=== PATIENT | male | born 1955 | race Caucasian/White ===

== ENCOUNTER 2022-08-10 14:35 | Emergency (ER) | payer OTHER ==
[2022-08-10 15:12] VITALS: RESP 16
--- NOTE | 2022-08-10 16:02 | CT ---
EXAMINATION TYPE: CT facial bones wo con DATE OF EXAM: 08/10/2022 COMPARISON: None HISTORY: Facial trauma CT DLP: 1217.3 mGycm Automated exposure control for dose reduction was used. Contrast: None Technique: Axial images 2 mm thick sections. Reconstructed images in the coronal plane. FINDINGS: Note is made of some septal deviation. Ostiomeatal units are patent. Mandible appears intact. Temporomandibular junctions are normal. Maxillary spine is intact. Maxilla a ppears unremarkable Maxillary sinuses are clear. Sphenoid sinuses are clear. Ethmoid air cells and frontal sinuses are cl ear. No acute fractures are evident. Some minimal soft tissue swelling over the left cheek region may be present. IMPRESSION: 1. NO ACUTE OSSEOUS ABNORMALITIES FACIAL BONES FOLLOW UP EXAMS CAN BE PERFORMED CLINICALLY INDICAT ED.
--- NOTE | 2022-08-10 16:02 | CT ---
EXAMINATION TYPE: CT brain howard wo con DATE OF EXAM: 08/10/2022 COMPARISON: None HISTORY: Trauma CT DLP: 1217.3 mGycm, Automated exposure control for dose reduction was used. CONTRAST: Patient injected with 0 mL of Isovue 300. CT of the brain is performed utilizing 3 mm thick sections through the posterior fossa and 3 mm thick sections through the remaining calvarium. Study is performed within 24 hours of arrival to the hospital. No abnormal hyperdensity is present to suggest an acute intracranial hemorrhage. No mass lesion is evident. No acute infarcts are evident. Ventricles and sulci are appropriate for the patient age. Paranasal sinuses and mastoid air cells within the [id number] are clear. IMPRESSIONS: 1. No acute intracranial process. Follow-up MRI can be performed as clinically indicated. CT cervical spine. COMPARISON: None CT of the cervical spine is performed in the axial plane at 2 mm thick sections. Reconstructed image s in the coronal, and sagittal plane are reviewed on the computer. No acute fractures are evident. Vertebral body alignment is normal. Disc space narrowing is present C5-6 C6-7. Vacuum disc phenomena present at these levels. Vertebral body heights are preserved. There may be some mild sclerosis within the C5 and C6 vertebral levels and along the superior endplate of C7. Anterior vertebral body spurring is present C5-C7. No spinal canal stenosis is evident. No neural foraminal stenosis is evident. Some mild facet hypertrophy with degenerative changes are pr esent. IMPRESSIONS: 1. No acute posttraumatic changes cervical spine. 2. Degenerative disc changes mid to lower cervical spine
[2022-08-10] MEDS ORDERED: DIPH,PERTUS(ACELL)TETVAC-LF 0.5 ML VIAL IM ONE (19:38)
[2022-08-10] MEDS ORDERED: PROPARACAINE 0.5% OPHTH DROPS 15 ML BTL LEFT EYE STA (19:38)
[2022-08-10] MEDS ORDERED: FLUORESCEIN STRIPS 1 MG STRIP LEFT EYE ONE (19:39)
[2022-08-10] MEDS ORDERED: ERYTHROMYCIN 5 MG/GM OPHTH OINT 3.5 GM TUBE LEFT EYE STA (19:39)
[2022-08-10] MEDS ORDERED: LIDOCAINE 1% INJ 10MG/ML (20 ML MDV) SQ STA (19:40)
--- NOTE | 2022-08-10 19:47 | ED ---
Head Injury HPI - General Chief complaint: Head Injury Stated complaint: left eye injury Time Seen by Provider: 08/10/22 19:30 Source: patient, RN notes reviewed Mode of arrival: ambulatory Limitations: no limitations - History of Present Illness Initial comments: This is a pleasant 66-year-old male who was struck in the face with a 4 x 4. Patient was jacking up his house and a 4 x 4 shot out while he was performing this and struck him in the face, he has a laceration to his nose and a laceration just below his left eye. Patient denying any visual complaints. Patient states he was stunned initially and saw stars. Patient was not knocked unconscious. He is not on blood thinners. Patient had a computed tomography scan ordered by the triage nurse prior to me seeing the patient. At this point the injury occurred about 6 hours as the patient has been waiting in our waiting room for 5 hours. No other injuries. Last tetanus unknown. No gait disturbance. No visual disturbance. No hearing disturbance. No vertigo. Patient denying any significant headache. No oral or dental injury. No difficulty swallowing. No neck pain. No headache, no fever or chills, no changes in vision or hearing, no sore throat or difficulty with speech, no neck pain, no chest pain or shortness of breath, no abdominal pain, no nausea or vomiting, no changes in urination or bowel movements, no numbness or tingling, no extremity pain, no skin rashes or lesions. Past medical, surgical, social, and family history reviewed. - Related Data Previous Rx's Medication Instructions Recorded Artificial Tears-Hypromellose 1 drops LEFT EYE TID #10 ml 08/10/22 [Artificial Tear Drops] Allergies/Adverse reactions: Allergies Allergy/AdvReac Type Severity Reaction Status Date / Time No Known Allergies Allergy Verified 08/10/22 15:12 Review of Systems ROS Statement: Those systems with pertinent positive or pertinent negative responses have been documented in the HPI. ROS Other: All systems not noted in ROS Statement are negative. Past Medical History Past Medical History: No Reported History History of Any Multi-Drug Resistant Organisms: None Reported Past Surgical History: No Surgical Hx Reported Past Psychological History: No Psychological Hx Reported Smoking Status: Current every day smoker Past Alcohol Use History: None Reported Past Drug Use History: Marijuana General Exam - General Exam Comments Initial Comments: Patient in no significant distress at the time I'm seeing him. Patient has obvious injuries to his facial area. Appears to be superficial laceration to the nose and superficial laceration below the left eye with some conjunctival hemorrhage the left eye. Cranial nerves II through XII are intact. Patient is alert and oriented 4. Limitations: no limitations General appearance: alert, in no apparent distress Head exam: Present: other (Superficial laceration of the bridge of nose. No septal hematoma. No bony point tenderness of the facial bones. Extraocular movements are intact) Eye exam: Present: PERRL, EOMI. Absent: normal appearance (Patient has a small laceration to the lower eyelid that crosses over onto the palpebral conjunctiva. This likely involves the tarsal plate as well.), scleral icterus, conjunctival injection, periorbital swelling, periorbital tenderness Expanded Eyelids: Normal Inspection: Right, Laceration: Left (Involving the lower eyelid, tarsal plate, onto the lower palpebral conjunctiva), Erythema: Left (Some conjunctival hemorrhage involving the lower scleral conjunctiva, approximately 30%) Pupils: Regular, Round: Bilateral, Reactive: Bilateral Sclera/Conjunctival: Hemorrhage: Left (Left, lower, 30% subconjunctival hemorrhage.) Anterior chamber: Normal Inspection: Bilateral ENT exam: Present: normal exam, normal oropharynx, mucous membranes moist, TM's normal bilaterally, normal external ear exam, other (No septal hematoma. Superficial laceration over the nasal bridge. Mild tenderness. Minimal ecchymosis to the left infraorbital area. No significant orbital tenderness.). Absent: mucous membranes dry Neck exam: Present: normal inspection, full ROM. Absent: tenderness, meningismus, lymphadenopathy Respiratory exam: Present: normal lung sounds bilaterally. Absent: respiratory distress, wheezes, rales, rhonchi, stridor, chest wall tenderness, accessory muscle use Cardiovascular Exam: Present: regular rate, normal rhythm, normal heart sounds. Absent: systolic murmur, diastolic murmur, rubs, gallop, clicks GI/Abdominal exam: Present: soft, normal bowel sounds. Absent: distended, tenderness, guarding, rebound, rigid Extremities exam: Present: normal inspection, full ROM, normal capillary refill. Absent: tenderness, pedal edema, joint swelling, calf tenderness Back exam: Present: normal inspection Neurological exam: Present: alert, oriented X3, CN II-XII intact Psychiatric exam: Present: normal affect, normal mood Skin exam: Present: warm, dry, normal color. Absent: rash Course Vital Signs 08/10/22 08/10/22 15:09 20:30 Temperature 98.5 F Pulse Rate 54 L 55 L Respiratory 16 16 Rate Blood Pressure 147/87 123/60 O2 Sat by Pulse 94 L 95 Oximetry - Reevaluation(s) Reevaluation #1: 08/10/22 22:01 Medical record is reviewed Symptoms are improved here in the emergency department Patient is informed of results and questions answered Patient in no distress Patient alert and oriented 4, cranial nerves II through XII intact. Procedures - Laceration Laceration #1 Consent Obtained: verbal consent Indication: laceration Site: face Size (cm): 2 Description: linear Depth: simple, single layer Pre-repair: wound explored, irrigated extensively Type of Sutures: other (Tissue adhesive) Patient Tolerated Procedure: well, no complications Medical Decision Making - Medical Decision Making I'm going to touch base with on-call ophthalmology due to the laceration of the lower eyelid likely involving the tarsal plate. Left lower eyelid laceration was repaired by the on-call truss maker, Dr. Mercado. Suture removal per ophthalmology instructions. Patient will need to follow-up within the next [address] Flood per ophthalmology instructions. Patient was given head injury instructions. Discussed signs and symptoms of concussion. Discussed restrictions. Discussed care of tissue adhesive. Discussed wound care and signs and symptoms of infection. Patient was told to return to the ER for any signs or symptoms worsen. Told to return immediately if any other problems arise. All questions answered. Treatment plan discussed. Patient in agreement Every effort has been made to ensure accuracy of this dictation. However, due to the limitations of electronic medical records and dictation devices, errors in charting still occur. Supervising physician is Dr. Topete - Radiology Data Radiology results: report reviewed (No evidence of acute pathology on CT of the brain and cervical spine. No fracture seen on CT of the facial bones.), image reviewed Disposition Clinical Impression: Closed head injury, Concussion without loss of consciousness, Eyelid laceration, left, Subconjunctival hemorrhage of left eye, Nasal laceration, Facial contusion Narrative: Left lower eyelid laceration with tarsal plate involvement Disposition: HOME SELF-CARE Condition: Good Instructions (If sedation given, give patient instructions): Care For Your Stitches (ED), Concussion (ED), Skin Adhesive Care (ED) Additional Instructions: Suture care as directed by the truss maker. The eye antibiotic ointment, 1 cm 4 times daily until recheck by ophthalmology. Review the head injury instructions. Make sure you with somebody at all times the next 24 hours. If anything for pain, take [id number] acetaminophen as directed on the bottle. Follow-up with your regular physician as directed. Call at 8 AM tomorrow morning to schedule the appointment with the truss maker. Return to the ER immediately if any symptoms worsen, new symptoms arise, or any other problems develop. Prescriptions: Artificial Tears-Hypromellose [Artificial Tear Drops] 1 drops LEFT EYE TID #10 ml Is patient prescribed a controlled substance at d/c from ED?: No Referrals: Jennifer Flood MD [STAFF PHYSICIAN] - 08/10/22 8:00 am Time of Disposition: 21:59
[2022-08-10] MEDS ORDERED: LIDOCAINE 1%-EPI 1:100,000 20 ML VIAL SQ STA (20:03)
[2022-08-10] MEDS ORDERED: TOPICAL SKIN ADHESIVE 1 EACH AMP TOPICAL ONE (21:17)
[2022-08-10 22:40] VITALS: BP 117/86; PULSE 56; TEMP 97.6
--- NOTE | 2022-08-10 23:20 | P.CON ---
Consult Note - . Consult date: 08/10/22 Assessment/Plan:: This is a 66 y/o male who while lifting a structure, was hit on the left side of his face with a 4x4" board that slipped from its support. He denies any LOC, but presented to the ER with a left eyelid laceration and an episode of syncope in the waiting room. Studies performed did not reveal any ariel defects and vision seemed normal after he was stabilized. I was asked to repair the left eyelid and an ophthalmic examination. he states that his last eye examination was most likely in school and currently he only uses reading glasses as he feels his distance is adequate. General: he is alert and oriented with mild to moderate pain along the left orbital and cheek areas. Ext: right unremarkable, left with bruising from the lateral brow through the upper eyelid, into the lower eyelid and the bruising extends to the nose. The la teral 1 cm is a full thickness irregular laceration which is not actively bleeding at the time of examination. Sensation normal. Va: w/o correction is 20/30 OD and 20/20-3 OS at distance EOM: full normal D&V Pupils: w/o APD CF: full OU Cornea: clear OU, no noted abrasions Conj: normal right, left with scattered subconjunctival bruising especially laterally and inferiorly AC: D&Q Iris: no pathology Lens: mild age-consistent cataract changes OU, otherwise normal (not dilated) Vit: clear OU ONH: S/F/P OU C:D 0.25 Mac: normal softened FLR without pathology Vasc: normal 0.67 Periphery: grossly normal A: laceration of left lower eyelid from 4x4" board P: recommend repair in ER and follow up examination of eyes to rule out any additional vitreoretinal injuries, as he was not acutely dilated. Recommend aggressive lubrication left eye. Topical eye ointment (erythromycin) during the acute phase of healing and follow up in office in approximately a week to remove sutures.
--- NOTE | 2022-08-10 23:32 | P.PCN ---
Date of Procedure: 08/10/22 Preoperative Diagnosis: Left lower eyelid laceration Postoperative Diagnosis: same Procedure(s) Performed: Full thickness eyelid laceration repair including the tarsus margin and eyelash line Implants: none Anesthesia: local Surgeon: Pee Mercado Estimated Blood Loss (ml): 10 Pathology: none sent Condition: stable Disposition: other (to home after ER final assessment) Indications for Procedure: Traumatic injury to left lower eyelid Operative Findings: Laceration approximately 2cm length x 1 cm wide. No missing tissue, and alignment generally good despite a somewhat ragged tear line. The eyelid margin was reapproximated with good alignment of the line of Riolan and secured with 8- 0 Vicryl. The tarsus inferior to the margin corresponding edges were identified and reapproximated using 2 additional 8-0 Vicryl interrupted sutures. Once the tarsus was repaired the eyelash line was aligned and secured with a single 8-0 Vicryl suture. The skin laceration was repaired with 6-0 nylon with interrupted sutures. The eye was dressed with topical erythromycin ointment. He tolerated procedure well and discharged from ER in good condition.
== END 2022-08-10 22:40 | disposition home or self-care (01) ==
LOC: EC 14:35
DX: S06.0X0A Concussion without loss of consciousness, initial encounter (principal); S01.21XA Laceration without foreign body of nose, initial encounter; S01.112A Laceration without foreign body of left eyelid and periocular area, initial encounter; H11.32 Conjunctival hemorrhage, left eye; Z23 Encounter for immunization; F17.200 Nicotine dependence, unspecified, uncomplicated; W23.1XXA Caught, crushed, jammed, or pinched between stationary objects, initial encounter
CPT/HCPCS: 72125; 70486; 70450; 90715; 12011; 90471; 99284; J2001

== ENCOUNTER 2023-08-28 12:24 | Inpatient (IN) | payer OTHER ==
--- NOTE | 2023-08-28 14:07 | ED ---
General Adult HPI - General Chief complaint: Weakness Stated complaint: JANENE Time Seen by Provider: 08/28/23 13:48 Source: patient Mode of arrival: ambulatory Limitations: no limitations - History of Present Illness Initial comments: Dictation was produced using [employer] dictation software. please excuse any grammatical, word or spelling errors. Chief Complaint: 68-year-old male presents emergency department for weakness and shortness of breath History of Present Illness: 68-year-old male has past nuchal history tobacco use. Patient has been weak. Denies any significant comorbidities. Significant other at the bedside and assists provides history present illness. Apparently 1 week he was cleaning a house that was extensively soiled with feces and urine. Since then he has been feeling weak and fatigued. Patient states he short of breath. Denies any chest pain. Denies any fever or constitutional symptoms. Significant other reports that patient has been urinating himself and have sent. Acting right. The ROS documented in this emergency department record has been reviewed and confirmed by me. Those systems with pertinent positive or negative responses have been documented in the HPI. All other systems are other negative and/or noncontributory. - Related Data Home Medications Medication Instructions Recorded Confirmed No Known Home Medications 08/28/23 08/28/23 Allergies Allergy/AdvReac Type Severity Reaction Status Date / Time No Known Allergies Allergy Verified 08/28/23 15:46 Review of Systems ROS Statement: Those systems with pertinent positive or pertinent negative responses have been documented in the HPI. ROS Other: All systems not noted in ROS Statement are negative. Past Medical History Past Medical History: No Reported History History of Any Multi-Drug Resistant Organisms: None Reported Past Surgical History: No Surgical Hx Reported Past Psychological History: No Psychological Hx Reported Smoking Status: Current every day smoker Past Alcohol Use History: None Reported Past Drug Use History: Marijuana General Exam - General Exam Comments Initial Comments: PHYSICAL EXAM: General Impression: Alert and oriented x3, not in acute distress HEENT: Normocephalic atraumatic, extra-ocular movements intact, pupils equal and reactive to light bilaterally, mucous membranes moist. Cardiovascular: Heart regular rate and rhythm Chest: Able to complete full sentences, no retractions, mild end expiratory wheezing Abdomen: abdomen soft, non-tender, non-distended, no organomegaly Musculoskeletal: Pulses present and equal in all extremities, no peripheral edema Motor: no focal deficits noted Neurological: CN II-XII grossly intact, no focal motor or sensory deficits noted Skin: Intact with no visualized rashes Psych: Normal affect and mood Limitations: no limitations Course Vital Signs 08/28/23 08/28/23 08/28/23 12:46 13:55 14:31 Temperature 99.3 F Pulse Rate 84 84 Respiratory 16 18 Rate Blood Pressure 135/70 O2 Sat by Pulse 93 L Oximetry 08/28/23 14:39 Temperature Pulse Rate 88 Respiratory Rate Blood Pressure O2 Sat by Pulse Oximetry EKG Findings - EKG Comments: EKG Findings:: My EKG interpretation: Ventricular rate 80, sinus rhythm,. Interval 131, QRS 84, QTC 361. No RI prolongation, no QTC prolongation, no ST or T-wave changes noted. Overall, this EKG is unremarkable Medical Decision Making - Medical Decision Making Was pt. sent in by a medical professional or institution (, [facility], [facility], urgent care, hospital, or residential...) When possible be specific @ -No Did you speak to anyone other than the patient for history (EMS, parent, family, police, friend...)? What history was obtained from this source @ -Some history obtained from significant other at the bedside states that he is behaving rather unusually Did you review nursing and triage notes (agree or disagree)? Why? @ -I reviewed and agree with nursing and triage notes Were old charts reviewed (outside hosp., previous admission, EMS record, old EKG, old radiological studies, urgent care reports/EKG's, residential records)? Report findings @ -No old charts were reviewed Differential Diagnosis (chest pain, altered mental status, abdominal pain women, abdominal pain men, vaginal bleeding, musculoskeletal, weakness, fever, dyspnea, syncope, headache, dizziness, GI bleed, back pain, seizure, CVA, palpatations, mental health)? @ -Differential Dyspnea: Coronary syndrome, arrhythmia, tamponade, asthma, COPD, pulmonary embolism, pneu monia, pneumothorax, pulmonary effusion, anaphylaxis, diabetic ketoacidosis, flailed chest, pulmonary contusion, diaphragmatic rupture, anemia, neuromuscular, this is not meant to be an all-inclusive list. EKG interpreted by me (3pts min.). @ -As above X-rays interpreted by me (1pt min.). @ -Multilobar pneumonia seen on chest x-ray CT interpreted by me (1pt min.). @ -None done U/S interpreted by me (1pt. min.). @ -None done What testing was considered but not performed or refused? (CT, X-rays, U/S, labs)? Why? @ -None What meds were considered but not given or refused? Why? @ -None Did you discuss the management of the patient with other professionals (professionals i.e. DrNaomi, PA, [facility], lab, RT, psych nurse, social services assistant, store operations specialist, teacher, prison officer, case picker)? Give summary @ -Discussed with Dr. Fuentes for admission Was smoking cessation discussed for >3mins.? @ -No Was critical care preformed (if so, how long)? @ -No Were there social determinants of health that impacted care today? How? (Homelessness, low income, unemployed, alcoholism, drug addiction, transportation, low edu. Level, literacy, decrease access to med. care, [facility], rehab)? @ -No Was there de-escalation of care discussed even if they declined (Discuss DNR or withdrawal of care, Hospice)? DNR status @ -No What co-morbidities impacted this encounter? (DM, HTN, Smoking, COPD, CAD, Cancer, CVA, ARF, Chemo, Hep., AIDS, mental health diagnosis, sleep apnea, morbid obesity)? @ -None Was patient admitted / discharged? Hospital course, mention meds given and route, prescriptions, significant lab abnormalities, going to OR and other p ertinent info. @ -68-year-old male presents emergency Department with chief complaint of shortness of breath and altered mental status. Vital signs upon arrival shows findings within acceptable limits. Did have a low-grade temperature. Laboratory evaluation shows leukocytosis of 20.4. Coag panel is normal. Labs unremarkable. No lactic acidosis. Computed tomography scan of brain is negative. Chest x-ray shows multilobar pneumonia. Patient treated with antibiotics. Reevaluated at 3:50 PM showing male with no apparent distress. Significant other is worried about his behavior and his weakness. Considering these factors patient be admitted for knee acquired pneumonia. He is on IV antibiotics. Will be admitted with consultation pulmonology. Undiagnosed new problem with uncertain prognosis? @ -No Drug Therapy requiring intensive monitoring for toxicity (Heparin, Nitro, Insulin, Cardizem)? @ -No Were any procedures done? @ -No Diagnosis/symptom? Acute, or Chronic, or Acute on Chronic? Uncomplicated (without systemic symptoms) or Complicated (systemic symptoms)? @ -multilobar pneumonia Side effects of treatment? @ -No Exacerbation, Progression, or Severe Exacerbation? @ -No Poses a threat to life or bodily function? How? (Chest pain, [place], [place], pneumonia, PE, COPD, DKA, ARF, appy, cholecystitis, CVA, Diverticulitis, Homicidal, Suicidal, threat to staff... and all critical care pts) @ -yes - Lab Data Result diagrams: 08/28/23 14:45 08/28/23 14:45 Lab Results 08/28/23 08/28/23 08/28/23 Range/Units 14:45 14:45 14:45 WBC 20.4 H (3.8-10.6) k/uL RBC 5.04 (4.30-5.90) m/uL Hgb 15.4 (13.0-17.5) gm/dL Hct 44.1 (39.0-53.0) % MCV 87.5 (80.0-100.0) fL MCH 30.5 (25.0-35.0) pg MCHC 34.9 (31.0-37.0) g/dL RDW 13.5 (11.5-15.5) % Plt Count 196 (150-450) k/uL MPV 10.4 Neutrophils % 84 % Lymphocytes % 7 % Monocytes % 7 % Eosinophils % 1 % Basophils % 0 % Neutrophils # 17.1 H (1.3-7.7) k/uL Lymphocytes # 1.4 (1.0-4.8) k/uL Monocytes # 1.4 H (0-1.0) k/uL Eosinophils # 0.1 (0-0.7) k/uL Basophils # 0.1 (0-0.2) k/uL PT 10.4 (10.0-12.5) sec INR 0.9 (<1.2) APTT 30.5 H (22.0-30.0) sec Sodium 133 L (137-145) mmol/L Potassium 3.8 (3.5-5.1) mmol/L Chloride 99 (98-107) mmol/L Carbon Dioxide 23 (22-30) mmol/L Anion Gap 11 mmol/L BUN 22 H (9-20) mg/dL Creatinine 1.02 (0.66-1.25) mg/dL Est GFR (CKD-EPI)AfAm 88 (>60 ml/min/1.73 sqM) Est GFR (CKD-EPI)NonAf 76 (>60 ml/min/1.73 sqM) Glucose 118 H (74-99) mg/dL Plasma Lactic Acid Nabil (0.7-2.0) mmol/L Calcium 9.0 (8.4-10.2) mg/dL Magnesium 2.3 (1.6-2.3) mg/dL Total Bilirubin 0.8 (0.2-1.3) mg/dL AST 96 H (17-59) U/L ALT 51 H (4-49) U/L Alkaline Phosphatase 118 (38-126) U/L Total Protein 6.6 (6.3-8.2) g/dL Albumin 3.6 (3.5-5.0) g/dL 08/28/23 Range/Units 14:45 WBC (3.8-10.6) k/uL RBC (4.30-5.90) m/uL Hgb (13.0-17.5) gm/dL Hct (39.0-53.0) % MCV (80.0-100.0) fL MCH (25.0-35.0) pg MCHC (31.0-37.0) g/dL RDW (11.5-15.5) % Plt Count (150-450) k/uL MPV Neutrophils % % Lymphocytes % % Monocytes % % Eosinophils % % Basophils % % Neutrophils # (1.3-7.7) k/uL Lymphocytes # (1.0-4.8) k/uL Monocytes # (0-1.0) k/uL Eosinophils # (0-0.7) k/uL Basophils # (0-0.2) k/uL PT (10.0-12.5) sec INR (<1.2) APTT (22.0-30.0) sec Sodium (137-145) mmol/L Potassium (3.5-5.1) mmol/L Chloride (98-107) mmol/L Carbon Dioxide (22-30) mmol/L Anion Gap mmol/L BUN (9-20) mg/dL Creatinine (0.66-1.25) mg/dL Est GFR (CKD-EPI)AfAm (>60 ml/min/1.73 sqM) Est GFR (CKD-EPI)NonAf (>60 ml/min/1.73 sqM) Glucose (74-99) mg/dL Plasma Lactic Acid Nabil 1.0 (0.7-2.0) mmol/L Calcium (8.4-10.2) mg/dL Magnesium (1.6-2.3) mg/dL Total Bilirubin (0.2-1.3) mg/dL AST (17-59) U/L ALT (4-49) U/L Alkaline Phosphatase (38-126) U/L Total Protein (6.3-8.2) g/dL Albumin (3.5-5.0) g/dL Disposition Clinical Impression: Pneumonia Disposition: ADMITTED IP TO THIS [facility] Condition: Fair Referrals: None,Stated [Primary Care Provider] - 1-2 days Decision Time: 15:48
[2023-08-28] MEDS ORDERED: IPRATROPIUM-ALBUTEROL 3 ML NEB INHALATION STA (14:29)
--- NOTE | 2023-08-28 15:01 | CT ---
EXAMINATION TYPE: CT brain wo con DATE OF EXAM: 08/28/2023 COMPARISON: 08/10/2022 INDICATION: ams DLP: 1100.4 mGycm, Automated exposure control for dose reduction was used. CONTRAST: None CT of the brain is performed utilizing 3 mm thick sections through the posterior fossa and 3 mm thick sections through the remaining calvarium. Study is performed within 24 hours of arrival to the [facility]. No abnormal hyperdensity is present to suggest an acute intracranial hemorrhage. No mass lesion is evident. No acute infarcts are evident. Ventricles and sulci are appropriate for the patient age. Paranasal sinuses and mastoid air cells within the [id number] are clear. IMPRESSION: 1. No acute intracranial process. Follow-up MRI can be performed as clinically indicated.
--- NOTE | 2023-08-28 15:07 | XR ---
EXAMINATION TYPE: XR chest 1V portable DATE OF EXAM: 08/28/2023 3:03 PM COMPARISON: None TECHNIQUE: XR chest 1V portable Portable AP radiograph of the chest. CLINICAL INDICATION:Male, 68 years old with history of ams; FINDINGS: Lungs/Pleura: Patchy wedge-shaped airspace opacity within the left upper midlung with additional prashant on within the right midlung. No pleural effusion or pneumothorax. Pulmonary vascularity: Unremarkable. Heart/mediastinum: Cardiomediastinal silhouette is unremarkable. Musculoskeletal: No acute osseous pathology. IMPRESSION: Patchy opacities within the left upper and mid lung with additional region within the right midlung. This is concerning for pneumonia. Continued follow-up is recommended.
[2023-08-28] MEDS ORDERED: AZITHROMYCIN 500 MG in SODIUM CHLORIDE 0.9% 250 ML IVPB STA (15:08)
[2023-08-28] MEDS ORDERED: SODIUM CHLORIDE 0.9% 1,000 ML IV STA (15:08)
[2023-08-28] MEDS ORDERED: cefTRIAXone IN SWFI 1,000 MG/10 ML SYRINGE IVP STA (15:08)
[2023-08-28 15:18] LABS: INR 0.9 (<1.2); Partial Thromboplastin Time 30.5 sec (22.0-30.0); Prothrombin Time 10.4 sec (10.0-12.5)
[2023-08-28 15:28] LABS: ALT 51 U/L (4-49); AST 96 U/L (17-59); African American GFR (CKD) 88 (>60 ml/min/1.73 sqM); Albumin 3.6 g/dL (3.5-5.0); Alkaline Phosphatase 118 U/L (38-126); Anion Gap 11 mmol/L; Blood Urea Nitrogen 22 mg/dL (9-20); Carbon Dioxide 23 mmol/L (22-30); Chloride 99 mmol/L (98-107); Glucose 118 mg/dL (74-99); Magnesium 2.3 mg/dL (1.6-2.3); Non-African American GFR(CKD) 76 (>60 ml/min/1.73 sqM); Potassium 3.8 mmol/L (3.5-5.1); Sodium 133 mmol/L (137-145); Total Bilirubin 0.8 mg/dL (0.2-1.3); Total Protein 6.6 g/dL (6.3-8.2)
[2023-08-28 15:35] LABS: Basophils # (A) 0.1 k/uL (0-0.2); Basophils % (A) 0 %; Eosinophils # (A) 0.1 k/uL (0-0.7); Eosinophils % (A) 1 %; HCT 44.1 % (39.0-53.0); HGB 15.4 gm/dL (13.0-17.5); Lymphocytes # (A) 1.4 k/uL (1.0-4.8); Lymphocytes % (A) 7 %; MCH 30.5 pg (25.0-35.0); MCHC 34.9 g/dL (31.0-37.0); MCV 87.5 fL (80.0-100.0); Mean Platelet Volume 10.4; Monocytes # (A) 1.4 k/uL (0-1.0); Monocytes % (A) 7 %; Neutrophils # (A) 17.1 k/uL (1.3-7.7); Neutrophils % (A) 84 %; Platelet Count 196 k/uL (150-450); RBC 5.04 m/uL (4.30-5.90); RDW 13.5 % (11.5-15.5); WBC 20.4 k/uL (3.8-10.6)
[2023-08-28] MEDS ORDERED: PNEUMONIA PROTOCOL UTILIZED 1 EACH MISC PO PRN (15:37)
[2023-08-28] MEDS ORDERED: IPRATROPIUM-ALBUTEROL 3 ML NEB INHALATION PRN (15:37)
[2023-08-28] MEDS ORDERED: ACETAMINOPHEN TAB 500 MG TAB PO PRN (16:41)
[2023-08-28] MEDS ORDERED: HYDROmorphone 1 MG/ML 1 ML SYRINGE IVP PRN (16:42)
[2023-08-28] MEDS: SODIUM CHLORIDE 0.9% 1,000 ML IV SCH (17:06)
[2023-08-28] MEDS: methylPREDNISolone SOD SUCCI 40 MG/ML 1 ML VIAL IV SCH ×2 (19:43→23:29)
--- NOTE | 2023-08-28 20:04 | CT ---
EXAMINATION TYPE: CT chest wo con DATE OF EXAM: 08/28/2023 COMPARISON: Radiograph same day HISTORY: 68-year-old male community-acquired pneumonia TECHNIQUE: Contiguous axial scanning of the chest without IV contrast. Coronal/sagittal reconstructio ns performed. CT DLP: 419.9mGycm. Automatic exposure control utilized for a dose reduction. FINDINGS: The heart is normal size without pericardial effusion. Aorta normal caliber with minimal atherosclerotic arch calcification. 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 Some reactive mediastinal lymph nodes are present measuring up to 1.3 cm lower left paratracheal and 1.2 cm lower right paratracheal. Moderate emphysematous changes. Multifocal consolidation is present, greatest in the anterior right m idlung and patchy multifocal areas throughout the left lung. No pleural effusion. Areas of dependent atelectasis is also present. Visualized upper abdomen shows no gross abnormality. Bones: Mild to moderate degenerative disc disease throughout. IMPRESSION: 1. COPD with moderate emphysema. 2. Focal air space disease anterior right midlung and also multifocal throughout the left lung. Corre late for multifocal pneumonia. No pulmonary abscess or cavitary change is identified at this time. Fo llow-up can be performed if there is no improvement with treatment. 3. Suspected reactive mediastinal adenopathy measuring up to 1.3 cm.
--- NOTE | 2023-08-28 23:21 | CT ---
EXAM: CT Angiography Chest With Intravenous Contrast CLINICAL HISTORY: ITS.REASON CT Reason: D-Dimer TECHNIQUE: Axial computed tomographic angiography images of the chest with intravenous contrast. CTDI is 10.2 mGy and DLP is 464.2 mGy-cm. This CT exam was performed using one or more of the following dose reduction techniques: automated exposure control, adjustment of the mA and/or kV according to patient size, and/or use of iterative reconstruction technique. MIP reconstructed images were created and reviewed. COMPARISON: No relevant prior studies available. FINDINGS: Pulmonary arteries: Unremarkable. No acute pulmonary embolism. Aorta: Atherosclerotic changes of the aorta. No thoracic aortic aneurysm. Lungs: Lobar consolidations in the LEFT upper lobe, RIGHT middle lobe, and to a lesser extent LEFT lower lobe, consistent with multifocal pneumonia. Mild centrilobular and paraseptal emphysema. Pleural space: Unremarkable. No significant effusion. No pneumothorax. Heart: Cardiomegaly. No significant pericardial effusion. No evidence of RV dysfunction. Bones/joints: Degenerative changes of the spine. No acute fracture. No dislocation. Soft tissues: Unremarkable. Lymph nodes: Unremarkable. No enlarged lymph nodes. Liver: Hepatic cystic lesions. Kidneys and ureters: Renal cysts. IMPRESSION: 1. No acute pulmonary embolism. 2. Lobar consolidations in the LEFT upper lobe, RIGHT middle lobe, and to a lesser extent LEFT lower lobe, consistent with multifocal pneumonia. 3. Mild centrilobular and paraseptal emphysema.
[2023-08-29] MEDS: methylPREDNISolone SOD SUCCI 125 MG/2 ML VIAL IV SCH ×5 (00:08→23:52)
--- NOTE | 2023-08-29 01:50 | HP ---
HISTORY AND PHYSICAL HISTORY OF PRESENT ILLNESS: A 68-year-old white male, came in with shortness of breath, nausea. PAST MEDICAL HISTORY: Nicotine addiction. He still wants to smoke despite cessation counseling many times. He is unable to get up. He was found to have lot of feces in his lower body. Negative for dysuria . Negative Homans. ALLERGIES: No known drug allergies. PAST SURGICAL HISTORY: Otherwise negative. SOCIAL HISTORY: Negative. PHYSICAL EXAMINATION: VITAL SIGNS: Blood pressure is 137/70, temperature 99, pulse 84, respiratory rate 16 to 18. LUNGS: Scattered rhonchi and wheeze. . Acute on chronic hypoxemic respiratory failure, chronic obstructive pulmonary disease. Continue treatment with steroids, . Prognosis guarded. Follow up in the next 24 to 48 hours. MMODL / IJN: [id number] /
--- NOTE | 2023-08-29 02:49 | P.CNPUL ---
History of Present Illness Consult date: 08/29/23 Requesting physician: Josh Flannery Reason for consult: dyspnea, pneumonia Chief complaint: Shortness of breath and productive cough starting approximately 1 week ago. History of present illness: I am seeing this patient in consultation today 08/29/2023 for multifocal community acquired pneumonia. Patient is a 68-year-old white male with a limited past medical history. He does currently smoke approximately 2 packs per day. He states that he was never officially diagnosed with COPD. He does not have a primary care provider, he states this is because he does not have healthcare insurance. Patient presented to the emergency room yesterday afternoon, and states that he's been experiencing progressively worsening shortness of breath accompanied with a congested cough. He states this started after cleaning a house that had dog urine and feces. He also sprayed the house with some sort of disinfectant agent. Patient denies any fevers, chills, chest pain. Denies sick contacts or recent travel. He does admit some diarrhea and isolated episode of vomiting. Denies any bleeding, abdominal pain. Patient is currently sitting up in bed, on room air, in no acute distress. Chest CTA on arrival was negative for pulmonary embolism. It did show lobar consolidations in the left upper lobe, right middle lobe, and to a lesser extent the left lower lobe. This is consistent with multifocal pneumonia. There is suspected reactive mediastinal adenopathy measuring up to 1.3 cm. There was also mild central lobar paraseptal emphysema. CBC on arrival showed leukocytosis with a WBC count of 20.4, hemoglobin 15.4, hematocrit 44.1, platelets 196. BMP on arrival shows sodium 133, potassium 3.8, chloride 99, serum bicarbonate 23, BUN 22, creatinine 1.02, glucose 118. Normal saline is infusing at KVO. LFTs were mildly elevated. Negative for influenza, RSV, COVID-19. Patient has been empirically started on combination of Rocephin and azithromycin. He is currently afebrile, but did have a temperature max of 101.3F on arrival. Overall, the patient appears nontoxic and is hemodynamically stable. Review of Systems REVIEW OF SYSTEMS: CONSTITUTIONAL: Denies any recent significant weight loss or weight gain. Admits generalized fatigue and malaise EYES: Denies change in vision. EARS, NOSE, MOUTH, THROAT: Denies headaches, denies sore throat. CARDIOVASCULAR: Denies chest pain, palpitations or syncopal episodes. RESPIRATORY: See HPI GASTROINTESTINAL: Denies change in appetite, abdominal pain. Admits some diarrhea and nausea and vomiting, which have improved. GENITOURINARY: Denies hematuria, denies infections. MUSKULOSKELETAL: Denies pain, denies swelling. INTEGUMENTARY: Denies rash, denies eczema. NEUROLOGICAL: Denies recent memory loss, no recent seizure activity. PSYCHIATRIC: Denies anxiety, denies depression. HEMATOLOGIC/LYMPHATIC: Denies anemia, denies enlarged lymph node Past Medical History Past Medical History: No Reported History History of Any Multi-Drug Resistant Organisms: None Reported Past Surgical History: No Surgical Hx Reported Past Psychological History: No Psychological Hx Reported Smoking Status: Current every day smoker Past Alcohol Use History: None Reported Past Drug Use History: Marijuana Medications and Allergies Home Medications Medication Instructions Recorded Confirmed Type No Known Home Medications 08/28/23 08/28/23 History Allergies Allergy/AdvReac Type Severity Reaction Status Date / Time No Known Allergies Allergy Verified 08/28/23 15:46 Physical Exam Vitals: Vital Signs Temp Pulse Resp BP Pulse Ox 08/29/23 02:03 98 F 57 L 16 103/57 95 08/29/23 00:24 64 20 102/72 96 08/28/23 23:01 66 21 107/65 94 L 08/28/23 21:20 65 18 103/53 96 08/28/23 18:22 99.5 F 78 16 99/60 92 L 08/28/23 17:12 76 16 97/57 92 L 08/28/23 16:06 94 L 08/28/23 15:56 101.3 F H 75 18 99/52 95 08/28/23 14:39 88 08/28/23 14:31 84 08/28/23 13:55 18 08/28/23 12:46 99.3 F 84 16 135/70 93 L Intake and Output 08/28/23 08/28/23 08/29/23 14:59 22:59 06:59 Other: Weight 83.915 kg GENERAL EXAM: Alert, 68-year-old white male, comfortable in no apparent distress. HEAD: Normocephalic and atraumatic EYES: Normal reaction of pupils, equal size. NOSE: Clear with pink turbinates. THROAT: No erythema or exudates. NECK: No masses, no JVD. CHEST: No chest wall deformity. LUNGS: Equal air entry with expiratory wheezes heard throughout. On room air. No conversational dyspnea or accessory muscle use.. CVS: S1 and S2 normal with no audible murmur, regular rhythm. No extra heart sounds ABDOMEN: No hepatosplenomegaly, active bowel sounds, no guarding or rigidity. SPINE: No scoliosis or deformity SKIN: No rashes CENTRAL NERVOUS SYSTEM: No focal deficits, tone is normal in all 4 extremities. EXTREMITIES: There is no peripheral edema, clubbing, or cyanosis. Peripheral pulses are intact. Results - Laboratory Findings CBC and BMP: 08/28/23 14:45 08/28/23 14:45 PT/INR, D-dimer PT 10.4 sec (10.0-12.5) 08/28/23 14:45 INR 0.9 (<1.2) 08/28/23 14:45 D-Dimer 1.69 mg/L FEU (<0.60) H 08/28/23 18:06 Abnormal lab findings: Abnormal Labs 08/28/23 08/28/23 08/28/23 14:45 14:45 14:45 WBC 20.4 H Neutrophils # 17.1 H Monocytes # 1.4 H APTT 30.5 H D-Dimer Sodium 133 L BUN 22 H Glucose 118 H AST 96 H ALT 51 H 08/28/23 18:06 WBC Neutrophils # Monocytes # APTT D-Dimer 1.69 H Sodium BUN Glucose AST ALT - Diagnostic Findings Chest x-ray: image reviewed CT scan - chest: image reviewed Assessment and Plan Assessment: Multifocal community-acquired pneumonia, Chest CTA on arrival was negative for pulmonary result. It did show lobar consolidations in the left upper lobe, ri ght middle lobe, and to a lesser extent the left lower lobe. This is consistent with multifocal community acquired pneumonia. There is suspected reactive mediastinal adenopathy measuring up to 1.3 cm. There was also mild central lobar paraseptal emphysema. Negative for influenza, RSV, COVID-19. Suspected acute COPD exacerbation Dyspnea, secondary to above Leukocytosis Mild transaminitis Chronic ongoing tobacco dependence Plan: Patient's medications, labs, imaging reviewed On room air Continue antibiotics in the form of ceftriaxone and azithromycin for CAP Blood and sputum cultures are pending Urine Legionella antigen pending Patient is being treated for suspected COPD exacerbation with bronchodilators, Symbicort inhaler, and IV Solu-Medrol Smoking cessation counseling performed Patient refused nicotine placement We will continue to follow and further recommendations are forthcoming I have personally seen and examined the patient, performed the documentation and the assessment and plan as written. Number of minutes spent on the visit:20 Time with Patient: Greater than 30
[2023-08-29] MEDS ORDERED: AZITHROMYCIN 500 MG TAB PO SCH (09:00)
[2023-08-29] MEDS: IPRATROPIUM-ALBUTEROL 3 ML NEB INHALATION SCH ×4 (09:07→22:03)
[2023-08-29] MEDS: SYMBICORT 160-4.5 MCG INHALER INHALATION SCH ×2 (09:07→22:03)
--- NOTE | 2023-08-29 10:35 | XR ---
EXAMINATION TYPE: XR chest 1V portable DATE OF EXAM: 08/29/2023 COMPARISON: 08/28/2023 INDICATION: Pneumonia TECHNIQUE: Single frontal view of the chest is obtained. FINDINGS: The heart size is normal. The pulmonary vasculature is normal. There is opacification with air bronchograms in the lateral left lung. This appears stable from mckenzie rison. Some streak opacity is present through the right mid lung towards the periphery. This may be slightly smaller than comparison. IMPRESSION: 1. Slight improvement of the right lung infiltrate. Left lung infiltrate is stable. Findings can be c ompatible with pneumonia. Continued follow-up is recommended.
[2023-08-29] MEDS: SODIUM CHLORIDE 0.9% 1,000 ML IV SCH (16:56)
[2023-08-29] MEDS: LEVOFLOXACIN 750MG-D5W PMX 750 MG in DEXTROSE/WATER 1 150ML.BAG IVPB SCH (23:52)
--- NOTE | 2023-08-30 03:59 | PN ---
PROGRESS NOTE SUBJECTIVE: Pneumonia, COPD, tracheobronchitis. OBJECTIVE: CARDIOVASCULAR: S1, S2. LUNGS: Scattered rhonchi, wheeze. HEMATOLOGY: Negative for Homans. PSYCH: Fair mood and affect. NEUROLOGIC: Alert and oriented x3. HEENT: Ophthalmologic, pupils equal, round, reactive. Continue current treatment plan for next 24 to 48 hours. Prognosis guarded. Treatment with steroids, antibiotics, updrafts. Prognosis guarded. MMODL / IJN: [id number] /
[2023-08-30] MEDS: methylPREDNISolone SOD SUCCI 125 MG/2 ML VIAL IV SCH ×3 (06:09→19:25)
[2023-08-30 06:12] LABS: Glucose,Whole Blood 152 mg/dL (70-110)
[2023-08-30] MEDS: IPRATROPIUM-ALBUTEROL 3 ML NEB INHALATION SCH ×4 (07:43→21:13)
[2023-08-30] MEDS: SYMBICORT 160-4.5 MCG INHALER INHALATION SCH ×2 (07:44→21:13)
[2023-08-30 08:59] LABS: Basophils % (A) 0 %; Eosinophils % (A) 0 %; HCT 43.4 % (39.0-53.0); HGB 14.4 gm/dL (13.0-17.5); Lymphocytes # (A) 1.1 k/uL (1.0-4.8); Lymphocytes % (A) 6 %; MCH 30.1 pg (25.0-35.0); MCHC 33.2 g/dL (31.0-37.0); MCV 90.6 fL (80.0-100.0); Monocytes # (A) 0.5 k/uL (0-1.0); Monocytes % (A) 3 %; Neutrophils # (A) 16.1 k/uL (1.3-7.7); Neutrophils % (A) 89 %; Platelet Count 241 k/uL (150-450); RBC 4.79 m/uL (4.30-5.90); RDW 13.4 % (11.5-15.5)
[2023-08-30 09:24] LABS: ALT 192 U/L (4-49); AST 253 U/L (17-59); African American GFR (CKD) >90 (>60 ml/min/1.73 sqM); Albumin 3.2 g/dL (3.5-5.0); Alkaline Phosphatase 118 U/L (38-126); Anion Gap 12 mmol/L; Blood Urea Nitrogen 22 mg/dL (9-20); Calcium 8.7 mg/dL (8.4-10.2); Carbon Dioxide 23 mmol/L (22-30); Chloride 104 mmol/L (98-107); Glucose 148 mg/dL (74-99); Non-African American GFR(CKD) >90 (>60 ml/min/1.73 sqM); Potassium 3.7 mmol/L (3.5-5.1); Sodium 139 mmol/L (137-145); Total Bilirubin 0.7 mg/dL (0.2-1.3); Total Protein 6.1 g/dL (6.3-8.2)
--- NOTE | 2023-08-30 10:23 | CA ---
Transthoracic Echo Report Name: Farshad Schmid Age: 68 Gender: M : 1955 Exam Date: 08/29/2023 10:33 Exam Location: [facility] Ht (in): 68 Wt (lb): 185 Ordering Physician: Michael Fuentes MD Attending/Referring Phys: Osteopathy Doctor Corina Thacker RDCS Procedure CPT: Indications: dyspnea Cardiac Hx: Technical Quality: Good Contrast 1: Total Dose (mL): Contrast 2: Total Dose (mL): MEASUREMENTS (Male / Female) Normal Values 2D ECHO LV Diastolic Diameter PLAX 4.4 cm 4.2 - 5.9 / 3.9 - 5.3 cm LV Systolic Diameter PLAX 3.2 cm IVS Diastolic Thickness 1.2 cm 0.6 - 1.0 / 0.6 - 0.9 cm LVPW Diastolic Thickness 1.0 cm 0.6 - 1.0 / 0.6 - 0.9 cm LV Relative Wall Thickness 0.5 RV Internal Dim ED PLAX 3.4 cm LA Systolic Diameter LX 3.9 cm 3.0 - 4.0 / 2.7 - 3.8 cm LV Diastolic Volume MOD 4C 110.9 cm??? LV Systolic Volume MOD 4C 50.1 cm??? LV Ejection Fraction MOD 4C 54.8 % LV Cardiac Index MOD 4C 1951.3 cm???/min???m??? LV Diastolic Length 4C 8.4 cm LV Systolic Length 4C 7.4 cm LV Diastolic Volume MOD 2C 105.0 cm??? LV Systolic Volume MOD 2C 42.1 cm??? LV Ejection Fraction MOD 2C 59.9 % LV Cardiac Index MOD 2C 2018.1 cm???/min???m??? LV Diastolic Length 2C 8.8 cm LV Systolic Length 2C 6.7 cm LA Volume 64.6 cm??? 18 - 58 / 22 - 52 cm??? LA Volume Index 31.9 cm???/m??? 16 - 28 cm???/m??? M-MODE Aortic Root Diameter MM 3.4 cm MV E Point Septal Separation 0.3 cm AV Cusp Separation MM 2.4 cm DOPPLER AV Peak Velocity 150.0 cm/s AV Peak Gradient 9.0 mmHg MV Area PHT 2.9 cm??? Mitral E Point Velocity 78.7 cm/s Mitral A Point Velocity 68.7 cm/s Mitral E to A Ratio 1.1 MV Deceleration Time 264.5 ms MV E' Velocity 9.6 cm/s Mitral E to MV E' Ratio 8.2 TR Peak Velocity 222.4 cm/s TR Peak Gradient 19.8 mmHg Right Ventricular Systolic Press 24.8 mmHg FINDINGS Left Ventricle Left ventricular ejection fraction is estimated at 55-60 %. Left ventricular cavity size normal. Mildly increased septal wall thickness. Right Ventricle Mild right ventricular dilatation. Right ventricular systolic pressure within normal limits. Right Atrium Normal right atrial size. Left Atrium Mildly increased left atrial volume. Mitral Valve Structurally normal mitral valve. Aortic Valve Trileaflet aortic valve. No aortic valve stenosis or regurgitation. Tricuspid Valve Structurally normal tricuspid valve. Mild tricuspid regurgitation. Pulmonic Valve Structurally normal pulmonic valve. Trace pulmonic regurgitation. Pericardium No pericardial effusion. Aorta Normal size aortic root and proximal ascending aorta. CONCLUSIONS Mild LVH with preserved systolic function Previewed by: Dr. Sterling Muse MD (Electronically Signed) Final Date: 30 August 2023 10:22
[2023-08-30 11:53] LABS: Glucose,Whole Blood 221 mg/dL (70-110)
[2023-08-30] MEDS ORDERED: DEXTROSE 50% SYRINGE 50 ML IVP PRN ×2 (14:08)
--- NOTE | 2023-08-30 15:49 | P.PN ---
Subjective Progress Note Date: 08/30/23 Principal diagnosis: Pneumonia. I am seeing this patient in consultation today 08/29/2023 for multifocal community acquired pneumonia. Patient is a 68-year-old white male with a limited past medical history. He does currently smoke approximately 2 packs per day. He states that he was never officially diagnosed with COPD. He does not have a primary care provider, he states this is because he does not have healthcare insurance. Patient presented to the emergency room yesterday afternoon, and states that he's been experiencing progressively worsening shortness of breath accompanied with a congested cough. He states this started after cleaning a house that had dog urine and feces. He also sprayed the house with some sort of disinfectant agent. Patient denies any fevers, chills, chest pain. Denies sick contacts or recent travel. He does admit some diarrhea and isolated episode of vomiting. Denies any bleeding, abdominal pain. Patient is currently sitting up in bed, on room air, in no acute distress. Chest CTA on arrival was negative for pulmonary embolism. It did show lobar consolidations in the left upper lobe, right middle lobe, and to a lesser extent the left lower lobe. This is consistent with multifocal pneumonia. There is suspected reactive mediastinal adenopathy measuring up to 1.3 cm. There was also mild central lobar paraseptal emphysema. CBC on arrival showed leukocytosis with a WBC count of 20.4, hemoglobin 15.4, hematocrit 44.1, platelets 196. BMP on arrival shows sodium 133, potassium 3.8, chloride 99, serum bicarbonate 23, BUN 22, creatinine 1.02, glucose 118. Normal saline is infusing at KVO. LFTs were mildly elevated. Negative for influenza, RSV, COVID-19. Patient has been empirically started on combination of Rocephin and azithromycin. He is currently afebrile, but did have a temperature max of 101.3F on arrival. Overall, the patient appears nontoxic and is hemodynamically stable. Progress note dated 08/30/2023. 68-year-old male who was admitted with a diagnosis of bilateral multifocal community acquired pneumonia. The patient was seen yesterday in consultation. He came with complaints of shortness of breath, chest congestion, and cough. The patient likely has underlying COPD, but has never been actually diagnosed. Chest CTA was negative for pulmonary embolism. It showed abnormalities in the left upper lobe, right middle lobe, and left lower lobe. The patient tested negative for influenza, RSV, and coronavirus infection. The patient's pro- calcitonin level was 0.88. The patient's urinary Legionella antigen was positive. Currently, he's on room air. The chest x-rays were ordered for mariaelena romano. He is getting saline at 20 mL an hour. Objective - Vital Signs Vital signs: Vital Signs Temp 97.8 F 08/30/23 12:00 Pulse 74 08/30/23 15:40 Resp 16 08/30/23 14:00 BP 125/65 08/30/23 12:00 Pulse Ox 94 L 08/30/23 12:00 FiO2 Intake & Output 08/29/23 08/30/23 08/30/23 18:59 06:59 18:59 Intake Total 180 480 360 Balance 180 480 360 Weight 83.915 kg Intake: Oral 180 480 360 Other: # Voids 1 2 1 - Exam No acute distress, oriented 3. No acute distress, no use of accessory muscles or conversational dyspnea. HEENT examination is grossly unremarkable. Mucous membranes are moist. No oral lesions. Neck supple. Full range of motion. No adenopathy thyromegaly or neck vein distention. Cardiovascular examination reveals regular rhythm rate. S1-S2 normal. No S3 or S4. No discernible murmur noted. Heart rate 74 bpm. Lungs reveal scattered bilateral rhonchi. No wheezes or crackles. Room air saturation 94%. Abdomen soft bowel sounds are heard. No masses or tenderness. Extremities are intact. No cyanosis clubbing or edema. Skin is without rash or lesion. Neurologic examination is brief but nonfocal. - Labs CBC & Chem 7: 08/30/23 07:11 08/30/23 07:11 Labs: Abnormal Lab Results - Last 24 Hours (Table) 08/29/23 08/30/23 08/30/23 Range/Units 12:58 06:10 07:11 WBC 18.0 H (3.8-10.6) k/uL Neutrophils # 16.1 H (1.3-7.7) k/uL BUN (9-20) mg/dL Glucose (74-99) mg/dL POC Glucose (mg/dL) 152 H (70-110) mg/dL AST (17-59) U/L ALT (4-49) U/L Total Protein (6.3-8.2) g/dL Albumin (3.5-5.0) g/dL Procalcitonin 0.88 H (0.02-0.09) ng/mL 08/30/23 08/30/23 Range/Units 07:11 11:52 WBC (3.8-10.6) k/uL Neutrophils # (1.3-7.7) k/uL BUN 22 H (9-20) mg/dL Glucose 148 H (74-99) mg/dL POC Glucose (mg/dL) 221 H (70-110) mg/dL AST 253 H (17-59) U/L ALT 192 H (4-49) U/L Total Protein 6.1 L (6.3-8.2) g/dL Albumin 3.2 L (3.5-5.0) g/dL Procalcitonin (0.02-0.09) ng/mL Microbiology - Last 24 Hours (Table) 08/28/23 15:10 Blood Culture - Preliminary Blood 08/28/23 14:45 Blood Culture - Preliminary Blood 08/28/23 15:59 Gram Stain - Final Sputum Sputum Culture - Final Assessment and Plan Assessment: Legionella pneumophila pneumonia. Probable COPD exacerbation. Chronic and ongoing tobacco use. Plan: Plan dated 08/30/2023. The patient's currently on Levaquin 750 mg IV piggyback per day. Currently also, the patient's getting saline at 20 mL an hour. For suspected COPD, the patient is getting albuterol sulfate and ipratropium bromide, as well as Symbicort, and Solu-Medrol. Clinically, the patient appears to be doing relatively well. He is on room air. He's not really manifesting any signs or symptoms of respiratory distress or difficulty. We will continue to follow make recommendations along the way. Prognosis is thought to be generally good. The disease process was explained to the patient today. Time with Patient: Less than 30
[2023-08-30 16:33] LABS: Glucose,Whole Blood 181 mg/dL (70-110)
[2023-08-30] MEDS: INSULIN ASPART (NovoLOG) 100 UNIT/ML VIAL SQ SCH ×2 (19:24→20:41)
[2023-08-30 20:17] LABS: Glucose,Whole Blood 252 mg/dL (70-110)
[2023-08-30] MEDS: LEVOFLOXACIN 750MG-D5W PMX 750 MG in DEXTROSE/WATER 1 150ML.BAG IVPB SCH (20:41)
[2023-08-30] MEDS: SODIUM CHLORIDE 0.9% 1,000 ML IV SCH (20:42)
[2023-08-31] MEDS: methylPREDNISolone SOD SUCCI 125 MG/2 ML VIAL IV SCH ×3 (06:27→13:07)
[2023-08-31 06:36] LABS: Glucose,Whole Blood 132 mg/dL (70-110)
[2023-08-31] MEDS: INSULIN ASPART (NovoLOG) 100 UNIT/ML VIAL SQ SCH ×4 (06:47→20:22)
--- NOTE | 2023-08-31 07:39 | XR ---
EXAMINATION TYPE: XR chest 1V portable DATE OF EXAM: 08/31/2023 6:55 AM CLINICAL INDICATION:Male, 68 years old with history of Legionaires pneumonia; [facility] COMPARISON: Chest radiographs from 08/29/2023 TECHNIQUE: XR chest 1V portable Frontal view of the chest. FINDINGS: Lungs/Pleura: Improved aeration of lungs on today's exam with persistent airspace opacities scattered throughout the lungs. No evidence of pneumothorax or large pleural effusion. Pulmonary vascularity: Unremarkable. Heart/mediastinum: Cardiomediastinal silhouette is unremarkable. Musculoskeletal: No acute osseous pathology. Other findings: None IMPRESSION: Improved aeration of the lungs with persistent multifocal airspace opacities.
[2023-08-31] MEDS: IPRATROPIUM-ALBUTEROL 3 ML NEB INHALATION SCH ×4 (07:41→22:32)
[2023-08-31] MEDS: SYMBICORT 160-4.5 MCG INHALER INHALATION SCH ×2 (07:41→22:32)
[2023-08-31 11:41] LABS: Glucose,Whole Blood 134 mg/dL (70-110)
--- NOTE | 2023-08-31 14:57 | P.PN ---
Subjective Progress Note Date: 08/31/23 Principal diagnosis: Pneumonia. I am seeing this patient in consultation today 08/29/2023 for multifocal community acquired pneumonia. Patient is a 68-year-old white male with a limited past medical history. He does currently smoke approximately 2 packs per day. He states that he was never officially diagnosed with COPD. He does not have a primary care provider, he states this is because he does not have healthcare insurance. Patient presented to the emergency room yesterday afternoon, and states that he's been experiencing progressively worsening shortness of breath accompanied with a congested cough. He states this started after cleaning a house that had dog urine and feces. He also sprayed the house with some sort of disinfectant agent. Patient denies any fevers, chills, chest pain. Denies sick contacts or recent travel. He does admit some diarrhea and isolated episode of vomiting. Denies any bleeding, abdominal pain. Patient is currently sitting up in bed, on room air, in no acute distress. Chest CTA on arrival was negative for pulmonary embolism. It did show lobar consolidations in the left upper lobe, right middle lobe, and to a lesser extent the left lower lobe. This is consistent with multifocal pneumonia. There is suspected reactive mediastinal adenopathy measuring up to 1.3 cm. There was also mild central lobar paraseptal emphysema. CBC on arrival showed leukocytosis with a WBC count of 20.4, hemoglobin 15.4, hematocrit 44.1, platelets 196. BMP on arrival shows sodium 133, potassium 3.8, chloride 99, serum bicarbonate 23, BUN 22, creatinine 1.02, glucose 118. Normal saline is infusing at KVO. LFTs were mildly elevated. Negative for influenza, RSV, COVID-19. Patient has been empirically started on combination of Rocephin and azithromycin. He is currently afebrile, but did have a temperature max of 101.3F on arrival. Overall, the patient appears nontoxic and is hemodynamically stable. Progress note dated 08/30/2023. 68-year-old male who was admitted with a diagnosis of bilateral multifocal community acquired pneumonia. The patient was seen yesterday in consultation. He came with complaints of shortness of breath, chest congestion, and cough. The patient likely has underlying COPD, but has never been actually diagnosed. Chest CTA was negative for pulmonary embolism. It showed abnormalities in the left upper lobe, right middle lobe, and left lower lobe. The patient tested negative for influenza, RSV, and coronavirus infection. The patient's pro- calcitonin level was 0.88. The patient's urinary Legionella antigen was positive. Currently, he's on room air. The chest x-rays were ordered for mariaelena romano. He is getting saline at 20 mL an hour. Progress note dated 08/31/2023. 68-year-old male admitted with a diagnosis of bilateral multifocal community- acquired pneumonia. The patient was seen in consultation 2 days ago. The patient's urinary Legionella antigen was positive. Today's chest x-ray shows significant improvement in the patient's bilateral infiltrates. Currently, the patient's on room air. He's not receiving any IV fluids. Again, chest x-ray is improved. Laboratory data today includes a hemoglobin A1c of 5.8, and a glucose of 134. Objective - Vital Signs Vital signs: Vital Signs Temp 98.2 F 08/31/23 12:00 Pulse 70 08/31/23 12:00 Resp 18 08/31/23 12:00 BP 123/65 08/31/23 12:00 Pulse Ox 96 08/31/23 12:00 FiO2 Intake & Output 08/30/23 08/31/23 08/31/23 18:59 06:59 18:59 Intake Total 540 110 Balance 540 110 Weight 83.1 kg Intake: Oral 540 110 Other: # Voids 1 1 - Exam No acute distress, oriented 3. No acute distress, no use of accessory muscles or conversational dyspnea. HEENT examination is grossly unremarkable. Mucous membranes are moist. No oral lesions. Neck supple. Full range of motion. No adenopathy thyromegaly or neck vein distention. Cardiovascular examination reveals regular rhythm rate. S1-S2 normal. No S3 or S4. No discernible murmur noted. Heart rate 70 bpm. Lungs reveal scattered bilateral rhonchi. No wheezes or crackles. Room air saturation 96 %. Abdomen soft bowel sounds are heard. No masses or tenderness. Extremities are intact. No cyanosis clubbing or edema. Skin is without rash or lesion. Neurologic examination is brief but nonfocal. - Labs CBC & Chem 7: 08/30/23 07:11 08/30/23 07:11 Labs: Abnormal Lab Results - Last 24 Hours (Table) 08/30/23 08/30/23 08/31/23 Range/Units 16:31 20:14 06:34 POC Glucose (mg/dL) 181 H 252 H 132 H (70-110) mg/dL 08/31/23 Range/Units 11:38 POC Glucose (mg/dL) 134 H (70-110) mg/dL Microbiology - Last 24 Hours (Table) 08/28/23 15:59 Gram Stain - Final Sputum Sputum Culture - Final 08/28/23 15:10 Blood Culture - Preliminary Blood 08/28/23 14:45 Blood Culture - Preliminary Blood Assessment and Plan Assessment: Legionella pneumophila pneumonia. Probable COPD exacerbation. Chronic and ongoing tobacco use. Plan: Plan dated 08/30/2023. The patient's currently on Levaquin 750 mg IV piggyback per day. Currently also, the patient's getting saline at 20 mL an hour. For suspected COPD, the patient is getting albuterol sulfate and ipratropium bromide, as well as Symbicort, and Solu-Medrol. Clinically, the patient appears to be doing relatively well. He is on room air. He's not really manifesting any signs or symptoms of respiratory distress or difficulty. We will continue to follow make recommendations along the way. Prognosis is thought to be generally good. The disease process was explained to the patient today. Plan dated 08/31/2023. The patient appears to be doing relatively well. He is not requiring any sup plemental oxygen. He is not on any IV fluids. His chest x-ray is improved. He continues on Levaquin for his Legionella pneumonia. Labs, x-rays, and medications are reviewed. Prognosis is thought to be generally good. His chest x-rays improved as mentioned above. We will continue to follow, and make recommendations along the way. The patient's Solu-Medrol is converted to prednisone 30 mg a day. Time with Patient: Less than 30
[2023-08-31 16:08] LABS: Glucose,Whole Blood 159 mg/dL (70-110)
[2023-08-31] MEDS: SODIUM CHLORIDE 0.9% 1,000 ML IV SCH (17:24)
[2023-08-31 20:14] LABS: Glucose,Whole Blood 133 mg/dL (70-110)
[2023-08-31] MEDS: LEVOFLOXACIN 750MG-D5W PMX 750 MG in DEXTROSE/WATER 1 150ML.BAG IVPB SCH (21:07)
[2023-09-01 06:19] LABS: Glucose,Whole Blood 93 mg/dL (70-110)
[2023-09-01] MEDS: INSULIN ASPART (NovoLOG) 100 UNIT/ML VIAL SQ SCH ×2 (06:24→12:24)
[2023-09-01] MEDS ORDERED: predniSONE 10 MG TAB PO SCH (09:00)
[2023-09-01] MEDS: IPRATROPIUM-ALBUTEROL 3 ML NEB INHALATION SCH ×2 (09:27→12:14)
[2023-09-01] MEDS: SYMBICORT 160-4.5 MCG INHALER INHALATION SCH (09:28)
[2023-09-01 11:38] LABS: Glucose,Whole Blood 106 mg/dL (70-110)
[2023-09-01 13:27] VITALS: BP 158/81; PULSE 55; RESP 18; TEMP 97.1
--- NOTE | 2023-09-01 14:30 | P.PN ---
Subjective Progress Note Date: 09/01/23 Principal diagnosis: Pneumonia. I am seeing this patient in consultation today 08/29/2023 for multifocal community acquired pneumonia. Patient is a 68-year-old white male with a limited past medical history. He does currently smoke approximately 2 packs per day. He states that he was never officially diagnosed with COPD. He does not have a primary care provider, he states this is because he does not have healthcare insurance. Patient presented to the emergency room yesterday afternoon, and states that he's been experiencing progressively worsening shortness of breath accompanied with a congested cough. He states this started after cleaning a house that had dog urine and feces. He also sprayed the house with some sort of disinfectant agent. Patient denies any fevers, chills, chest pain. Denies sick contacts or recent travel. He does admit some diarrhea and isolated episode of vomiting. Denies any bleeding, abdominal pain. Patient is currently sitting up in bed, on room air, in no acute distress. Chest CTA on arrival was negative for pulmonary embolism. It did show lobar consolidations in the left upper lobe, right middle lobe, and to a lesser extent the left lower lobe. This is consistent with multifocal pneumonia. There is suspected reactive mediastinal adenopathy measuring up to 1.3 cm. There was also mild central lobar paraseptal emphysema. CBC on arrival showed leukocytosis with a WBC count of 20.4, hemoglobin 15.4, hematocrit 44.1, platelets 196. BMP on arrival shows sodium 133, potassium 3.8, chloride 99, serum bicarbonate 23, BUN 22, creatinine 1.02, glucose 118. Normal saline is infusing at KVO. LFTs were mildly elevated. Negative for influenza, RSV, COVID-19. Patient has been empirically started on combination of Rocephin and azithromycin. He is currently afebrile, but did have a temperature max of 101.3F on arrival. Overall, the patient appears nontoxic and is hemodynamically stable. Progress note dated 08/30/2023. 68-year-old male who was admitted with a diagnosis of bilateral multifocal community acquired pneumonia. The patient was seen yesterday in consultation. He came with complaints of shortness of breath, chest congestion, and cough. The patient likely has underlying COPD, but has never been actually diagnosed. Chest CTA was negative for pulmonary embolism. It showed abnormalities in the left upper lobe, right middle lobe, and left lower lobe. The patient tested negative for influenza, RSV, and coronavirus infection. The patient's pro- calcitonin level was 0.88. The patient's urinary Legionella antigen was positive. Currently, he's on room air. The chest x-rays were ordered for mariaelena romano. He is getting saline at 20 mL an hour. Progress note dated 08/31/2023. 68-year-old male admitted with a diagnosis of bilateral multifocal community- acquired pneumonia. The patient was seen in consultation 2 days ago. The patient's urinary Legionella antigen was positive. Today's chest x-ray shows significant improvement in the patient's bilateral infiltrates. Currently, the patient's on room air. He's not receiving any IV fluids. Again, chest x-ray is improved. Laboratory data today includes a hemoglobin A1c of 5.8, and a glucose of 134. Progress note dated 09/01/2023. 68-year-old male admitted with a diagnosis of bilateral multifocal community acquired pneumonia. The patient did test positive for Legionnaires disease. Currently, the patient is seen in room 361. He is on room air. No IV fluids. His chest x-rays improved. He continues on Levaquin. No new labs today other than a glucose of 106. Objective - Vital Signs Vital signs: Vital Signs Temp 97.1 F L 09/01/23 12:00 Pulse 68 09/01/23 12:23 Resp 18 09/01/23 12:00 BP 158/81 09/01/23 12:00 Pulse Ox 93 L 09/01/23 12:00 FiO2 Intake & Output 08/31/23 09/01/23 09/01/23 18:59 06:59 18:59 Intake Total 1014 118 200 Balance 1014 118 200 Intake: Oral 1014 118 200 Other: # Voids 2 1 - Exam No acute distress, oriented 3. No acute distress, no use of accessory muscles or conversational dyspnea. HEENT examination is grossly unremarkable. Mucous membranes are moist. No oral lesions. Neck supple. Full range of motion. No adenopathy thyromegaly or neck vein distention. Cardiovascular examination reveals regular rhythm rate. S1-S2 normal. No S3 or S4. No discernible murmur noted. Heart rate 68 bpm. Lungs reveal scattered bilateral rhonchi. No wheezes or crackles. Room air saturation 95 %. Abdomen soft bowel sounds are heard. No masses or tenderness. Extremities are intact. No cyanosis clubbing or edema. Skin is without rash or lesion. Neurologic examination is brief but nonfocal. - Labs CBC & Chem 7: 08/30/23 07:11 08/30/23 07:11 Labs: Abnormal Lab Results - Last 24 Hours (Table) 08/31/23 08/31/23 Range/Units 16:06 20:13 POC Glucose (mg/dL) 159 H 133 H (70-110) mg/dL Microbiology - Last 24 Hours (Table) 08/28/23 15:10 Blood Culture - Preliminary Blood 08/28/23 14:45 Blood Culture - Preliminary Blood 08/28/23 15:59 Legionella Culture - Preliminary Sputum Assessment and Plan Assessment: Legionella pneumophila pneumonia. Probable COPD exacerbation. Chronic and ongoing tobacco use. Plan: Plan dated 08/30/2023. The patient's currently on Levaquin 750 mg IV piggyback per day. Currently also, the patient's getting saline at 20 mL an hour. For suspected COPD, the patient is getting albuterol sulfate and ipratropium bromide, as well as Symbicort, and Solu-Medrol. Clinically, the patient appears to be doing relatively well. He is on room air. He's not really manifesting any signs or symptoms of respiratory distress or difficulty. We will continue to follow make recommendations along the way. Prognosis is thought to be generally good. The disease process was explained to the patient today. Plan dated 08/31/2023. The patient appears to be doing relatively well. He is not requiring any supplemental oxygen. He is not on any IV fluids. His chest x-ray is improved. He continues on Levaquin for his Legionella pneumonia. Labs, x-rays, and medications are reviewed. Prognosis is thought to be generally good. His chest x-rays improved as mentioned above. We will continue to follow, and make recommendations along the way. The patient's Solu-Medrol is converted to prednisone 30 mg a day. Plan dated 09/01/2023. The patient's doing well. He is on room air. No IV fluids. Labs, x-rays, and medications are reviewed. His most recent chest x-rays improved. From the pulmonary perspective, the patient could be considered for discharge home. No additional recommendations are made. Prognosis is guarded. He should have follow-up, with a follow-up chest x-ray. I would be happy to see him in the office. Time with Patient: Less than 30
[2023-09-01] MEDS ORDERED: LEVOFLOXACIN 750 MG TAB PO SCH (21:00)
--- NOTE | 2023-09-01 23:14 | PN ---
PROGRESS NOTE DATE OF SERVICE: 08/31/2023 SUBJECTIVE: He has bilateral pneumonia. Chest CTA was negative for PE. His urine tested positive for Legionella, his final cultures negative. He has improvement in his symptoms and he can possibly go home soon. He is prediabetic. OBJECTIVE: VITAL SIGNS: His blood pressure 122/66, respiratory rate 18, and pulse 70. CARDIOVASCULAR: S1, S2. EXTREMITIES: No cyanosis, clubbing, or edema. ABDOMEN: Soft. White count is . Wait for Pulmonary to clear him prior to surgery to go home, but he is obviously improving daily. Possible discharge home soon. MMODL / IJN: [id number] /
== END 2023-09-01 16:14 | disposition home or self-care (01) | DRG 178 ==
LOC: EC 12:24 → 3SCARD 15:40
PROVIDERS: ADMIT Family Medicine; ATTEND Family Medicine
DX: A48.1 Legionnaires' disease (principal); J44.0 Chronic obstructive pulmonary disease with (acute) lower respiratory infection; R73.03 Prediabetes; R74.01 Elevation of levels of liver transaminase levels; F17.210 Nicotine dependence, cigarettes, uncomplicated; Z20.822 Contact with and (suspected) exposure to COVID-19; Z71.6 Tobacco abuse counseling
CPT/HCPCS: 36415; 70450; 71045; 71250; 71275; 80053; 83036; 83605; 83735; 84145; 85025; 85379; 85610; 85730; 87040; 87070; 87205; 87449; 87636; 93005; 93306; 94640; 94760; 96361; 96365; 96366; 96367; 96375; 96376; 99285